=== PATIENT | male | born 1955 | race Caucasian/White ===

== ENCOUNTER 2017-08-03 16:40 | Emergency (ER) | payer OTHER ==
[2017-08-03 16:47] VITALS: TEMP 98.1
[2017-08-03] MEDS ORDERED: LORazepam 2 MG/ML INJ IV STA (17:34)
[2017-08-03] MEDS ORDERED: SODIUM CHLORIDE 0.9% 1,000 ML with MVI, ADULT NO.4 WITH VIT K 10 ML, THIAMINE 100 MG, F... IV ONE ×4 (17:35)
[2017-08-03] MEDS ORDERED: SODIUM CHLORIDE 0.9% 1,000 ML IV ONE (17:35)
[2017-08-03 17:49] VITALS: RESP 18
[2017-08-03 17:50] LABS: Basophils # (A) 0.1 k/uL (0-0.2); Basophils % (A) 1 %; Eosinophils # (A) 0.3 k/uL (0-0.7); Eosinophils % (A) 4 %; HCT 41.7 % (39.0-53.0); HGB 14.1 gm/dL (13.0-17.5); Lymphocytes # (A) 1.3 k/uL (1.0-4.8); Lymphocytes % (A) 23 %; MCH 28.5 pg (25.0-35.0); MCHC 33.9 g/dL (31.0-37.0); Mean Platelet Volume 7.3; Monocytes # (A) 0.4 k/uL (0-1.0); Monocytes % (A) 7 %; Neutrophils # (A) 3.7 k/uL (1.3-7.7); Neutrophils % (A) 64 %; Platelet Count 103 k/uL (150-450); RBC 4.96 m/uL (4.30-5.90); RDW 13.7 % (11.5-15.5); WBC 5.8 k/uL (3.8-10.6)
[2017-08-03 18:00] LABS: ALT 58 U/L (21-72); AST 82 U/L (17-59); Albumin 3.9 g/dL (3.5-5.0); Alcohol <10 mg/dL; Alkaline Phosphatase 173 U/L (38-126); Amylase 36 U/L (30-110); Anion Gap 8 mmol/L; Blood Urea Nitrogen 15 mg/dL (9-20); Calcium 9.3 mg/dL (8.4-10.2); Carbon Dioxide 30 mmol/L (22-30); Chloride 101 mmol/L (98-107); Glucose 186 mg/dL (74-99); Lipase 100 U/L (23-300); Magnesium 1.8 mg/dL (1.6-2.3); Potassium 3.8 mmol/L (3.5-5.1); Sodium 139 mmol/L (137-145); Total Protein 6.9 g/dL (6.3-8.2)
--- NOTE | 2017-08-03 18:33 | ED ---
Alcohol HPI - General Chief Complaint: Alcohol Stated Complaint: Withdrawls Time Seen by Provider: 08/03/17 17:21 Source: patient, family, RN notes reviewed Mode of arrival: ambulatory Limitations: no limitations - History of Present Illness Initial Comments: This a 62-year-old male presents emergency Department from primary care physician's office for alcohol withdrawal. Patient states that he has been drinking on and off for last couple years states prior to this he was sober for 28 years. Patient states that he stopped drinking yesterday can wants primary care's office and states that he was advised take another Xanax and which she takes 0.25 mg. Patient states that did not help much. He states he is shaky but denies any prior seizures. Patient states that is not hallucinations. Patient denies chest pain, shortness breath, headache, dizziness, diarrhea constipation. He did have an episode of nausea and vomiting. Patient has mild right upper quadrant abdominal pain. - Related Data Home Medications Medication Instructions Recorded Confirmed ALPRAZolam [Xanax] 0.25 mg PO BID PRN 08/03/17 08/03/17 Previous Rx's Medication Instructions Recorded chlordiazePOXIDE HCl [Librium] 25 mg PO QID #20 capsule 08/03/17 Allergies Allergy/AdvReac Type Severity Reaction Status Date / Time acetaminophen [From Tylox] Allergy Unknown Verified 08/03/17 17:35 codeine Allergy Unknown Verified 08/03/17 17:35 diazepam [From Valium] Allergy Unknown Verified 08/03/17 17:35 oxycodone [From Tylox] Allergy Unknown Verified 08/03/17 17:35 Review of Systems ROS Statement: Those systems with pertinent positive or pertinent negative responses have been documented in the HPI. ROS Other: All systems not noted in ROS Statement are negative. Past Medical History Past Medical History: Osteoarthritis (OA) History of Any Multi-Drug Resistant Organisms: None Reported Past Surgical History: Joint Replacement, Orthopedic Surgery Past Psychological History: No Psychological Hx Reported Smoking Status: Current every day smoker Past Alcohol Use History: Abuse, Daily Past Drug Use History: None Reported General Exam Limitations: no limitations General appearance: alert, in no apparent distress Head exam: Present: atraumatic, normocephalic, normal inspection Eye exam: Present: normal appearance, PERRL, EOMI. Absent: scleral icterus, conjunctival injection, periorbital swelling ENT exam: Present: normal exam, normal oropharynx, mucous membranes moist Neck exam: Present: normal inspection. Absent: tenderness, meningismus, lymphadenopathy Respiratory exam: Present: normal lung sounds bilaterally. Absent: respiratory distress, wheezes, rales, rhonchi, stridor Cardiovascular Exam: Present: regular rate, normal rhythm, normal heart sounds. Absent: systolic murmur, diastolic murmur, rubs, gallop, clicks GI/Abdominal exam: Present: soft, normal bowel sounds. Absent: distended, tenderness, guarding, rebound, rigid Back exam: Absent: CVA tenderness (R), CVA tenderness (L) Course Vital Signs 08/03/17 08/03/17 08/03/17 16:43 17:49 18:40 Temperature 98.1 F Pulse Rate 98 91 81 Respiratory 20 18 18 Rate Blood Pressure 177/83 150/72 134/83 O2 Sat by Pulse 96 98 98 Oximetry Medical Decision Making - Medical Decision Making 62-year-old male to emergency department for about jaw. Patient's only symptom at this time was slight shaking. He has no hallucinations and vitals have been stable is not tachycardic or hypertensive. Patient we discharged with Librium I did a long discussion with family and patient that this can be managed outpatient with Librium the patient needs states that they need to stop drinking patient states he is ready to be sober. I did advise that he can follow-up with PCP discuss Antabuse. Family agrees to this plan this time. - Lab Data Result diagrams: 08/03/17 17:35 08/03/17 17:35 Lab Results 08/03/17 08/03/17 Range/Units 17:35 17:35 WBC 5.8 (3.8-10.6) k/uL RBC 4.96 (4.30-5.90) m/uL Hgb 14.1 (13.0-17.5) gm/dL Hct 41.7 (39.0-53.0) % MCV 84.0 (80.0-100.0) fL MCH 28.5 (25.0-35.0) pg MCHC 33.9 (31.0-37.0) g/dL RDW 13.7 (11.5-15.5) % Plt Count 103 L (150-450) k/uL Neutrophils % 64 % Lymphocytes % 23 % Monocytes % 7 % Eosinophils % 4 % Basophils % 1 % Neutrophils # 3.7 (1.3-7.7) k/uL Lymphocytes # 1.3 (1.0-4.8) k/uL Monocytes # 0.4 (0-1.0) k/uL Eosinophils # 0.3 (0-0.7) k/uL Basophils # 0.1 (0-0.2) k/uL Sodium 139 (137-145) mmol/L Potassium 3.8 (3.5-5.1) mmol/L Chloride 101 (98-107) mmol/L Carbon Dioxide 30 (22-30) mmol/L Anion Gap 8 mmol/L BUN 15 (9-20) mg/dL Creatinine 0.60 L (0.66-1.25) mg/dL Est GFR (MDRD) Af Amer >60 (>60 ml/min/1.73 sqM) Est GFR (MDRD) Non-Af >60 (>60 ml/min/1.73 sqM) Glucose 186 H (74-99) mg/dL Calcium 9.3 (8.4-10.2) mg/dL Magnesium 1.8 (1.6-2.3) mg/dL Total Bilirubin 2.0 H (0.2-1.3) mg/dL AST 82 H (17-59) U/L ALT 58 (21-72) U/L Alkaline Phosphatase 173 H (38-126) U/L Total Protein 6.9 (6.3-8.2) g/dL Albumin 3.9 (3.5-5.0) g/dL Amylase 36 (30-110) U/L Lipase 100 (23-300) U/L Serum Alcohol <10 mg/dL Disposition Clinical Impression: Alcohol abuse Disposition: HOME SELF-CARE Condition: Stable Instructions: Alcohol Withdrawal (ED) Additional Instructions: Please return to the Emergency Department if symptoms worsen or any other concerns. Prescriptions: chlordiazePOXIDE HCl [Librium] 25 mg PO QID #20 capsule Referrals: Travis Fall MD [Primary Care Provider] - 1-2 days Time of Disposition: 19:02
[2017-08-03] MEDS ORDERED: chlordiazePOXIDE 25 MG CAP PO STA (19:00)
[2017-08-03 19:43] VITALS: BP 149/83; PULSE 80
== END 2017-08-03 19:55 | disposition home or self-care (01) ==
LOC: EC 16:40
DX: F10.10 Alcohol abuse, uncomplicated (principal); R10.11 Right upper quadrant pain; F17.200 Nicotine dependence, unspecified, uncomplicated; Z88.5 Allergy status to narcotic agent; Z88.8 Allergy status to other drugs, medicaments and biological substances
CPT/HCPCS: 36415; 80053; 82150; 83690; 83735; 85025; 80320; 99284; 96365; 96375; 96361; J2060; J3411